=== PATIENT | male | born 1975 | race Caucasian/White ===

== ENCOUNTER 2016-04-05 18:48 | Emergency (ER) | payer OTHER ==
[2016-04-05 19:29] VITALS: BP 145/95
--- NOTE | 2016-04-05 20:14 | UC ---
Knee Pain HPI - HPI Summary HPI Summary: 40 year old male presents with right knee pain after an acute injury. Patient was skiing today, twisted his leg and felt and heard "two pops". Patient continued to ski, on his last run down the hill went to turn and his skis got stuck, patient fell, has been unable to extend the leg or bear weight on the right side. Patient reports 10/10 throbbing pain in the knee, with very limited ROM. Denies numbness or tingling in the right foot. - History of Current Complaint Chief Complaint: UCLowerExtremity Stated Complaint: KNEE INJURY Time Seen by Provider: 04/05/16 20:03 Hx Obtained From: Patient Onset/Duration: Sudden Onset Severity Initially: Severe Severity Currently: Severe Pain Intensity: 10 Pain Scale Used: 0-10 Numeric Character: Sharp, Dull, Aching, Throbbing, Stiffness Aggravating Factor(s): Movement, Weight Bearing, Stairs Alleviating Factor(s): Rest, Cold Associated Signs And Symptoms: Positive: Swelling, Weakness Able to Bear Weight: Yes Related History: Similar Episode/Dx as - right Menicus tear - Risk Factors Septic Arthritis Risk Factor: Negative Gout Risk Factor: Negative - Allergies/Home Medications Allergies/Adverse Reactions: Allergies Allergy/AdvReac Type Severity Reaction Status Date / Time No Known Allergies Allergy Verified 04/05/16 19:29 Home Medications: Home Medications Losartan TAB* [Cozaar TAB*] 25 mg PO DAILY 04/05/16 [History Confirmed 04/05/16] OXcarbazepine TAB(*) [Trileptal TAB(*)] 300 mg PO 04/05/16 [History] Sertraline* [Zoloft*] 50 mg PO DAILY 04/05/16 [History Confirmed 04/05/16] PMH/Surg Hx/FS Hx/Imm Hx Previously Healthy: Yes Cardiovascular History Of: Reports: Hypertension Psychological History Of: Reports: Depression, Bipolar Disorder - Surgical History Surgical History: Yes Surgery Procedure, Year, and Place: GASTRIC BYPAS 2009. [facility] - Social History Occupation: Employed Full-time Lives: With Family Alcohol Use: Daily Substance Use Type: None Smoking Status (MU): Never Smoked Tobacco Have You Smoked in the Last Year: No Review of Systems Constitutional: Negative Skin: Negative Eyes: Negative ENT: Negative Respiratory: Negative Cardiovascular: Negative Gastrointestinal: Negative Genitourinary: Negative Motor: Negative Neurovascular: Negative Musculoskeletal: Negative Neurological: Negative Psychological: Negative All Other Systems Reviewed And Are Negative: Yes Physical Exam Triage Information Reviewed: Yes Appearance: Well-Appearing Vital Signs: Initial Vital Signs Temp 99.9 F 04/05/16 19:23 Pulse 93 04/05/16 19:23 Resp 16 04/05/16 19:23 BP 145/95 04/05/16 19:23 Pulse Ox 100 04/05/16 19:23 Vital Signs Reviewed: Yes Eye Exam: Normal ENT Exam: Normal Dental Exam: Normal Neck exam: Normal Neck: Positive: Supple, Nontender, No Lymphadenopathy Respiratory Exam: Normal Respiratory: Positive: Chest non-tender, Lungs clear, Normal breath sounds Cardiovascular Exam: Normal Cardiovascular: Positive: RRR, No Murmur, Pulses Normal Abdominal Exam: Normal Abdomen Description: Positive: Nontender Bowel Sounds: Positive: Present Musculoskeletal Exam: Normal Neurological Exam: Normal Neurological: Positive: Alert Psychological Exam: Normal, Other - Observed extreme mood swings while Skin Exam: Normal Knee Pain Course/Dx - Course Course Of Treatment: Pt refused X-ray of the knee. Would prefer to follow up with his orthopedic surgeon, whom he consulted before coming in. While pt desired intraarticular steroids, he understands that we cannot do that in urgent care. Discussed comforting measures for acute knee pain, patient and provider discussed and agreed upon treatment options, verbalized his understanding. Pt stated he would like crutches ordered and agreed to some pain medication, but once the RN entered the room with medictions and discharge papers, he refused to sign the papers or use crutches. The patient jumped on one leg (wearing his KEVIN wrap and knee immobilizer) to the door. After attempting to exit the building the patient return saying that he would instead like hydrocodone tablets for pain. Patient was discharged to his home safely via wheelchair, patient assisted into the car safely. - Differential Dx/Diagnosis Provider Diagnoses: Acute knee injury Discharge - Discharge Plan Condition: Stable Disposition: HOME Prescriptions: HYDROcodone/ACETAMIN 5-325 MG* [[place] 5-325 TAB*] 1 tab PO Q6H PRN #6 tab MDD 4 PRN Reason: Pain Patient Education Materials: Knee Sprain (ED) Referrals: Non Staff,Doctor [Primary Care Provider] - As Soon As Possible (Follow up with your orthopedist within the work week. Return for evaluation with any new or worsening symptoms. Seek immediate medical attention in you experience numbness /tingling, decreased sensation in the right foot. ) Additional Instructions: Follow up with orthopedist within the work week.
[2016-04-05] MEDS ORDERED: Acetaminoph/Cod 120/12 mg LIQ* 5 ML UDC PO ONE ×2 (20:34→20:41)
[2016-04-05] MEDS ORDERED: HYDROcodone/ACETAMIN 5-325 MG* 1 TAB PO ONE (21:04)
== END 2016-04-05 21:25 | disposition home or self-care (01) ==
LOC: UCCORT 18:48
DX: S89.91XA Unspecified injury of right lower leg, initial encounter (principal); W19.XXXA Unspecified fall, initial encounter; Y93.23 Activity, snow (alpine) (downhill) skiing, snowboarding, sledding, tobogganing and snow tubing; Y92.89 Other specified places as the place of occurrence of the external cause; I10 Essential (primary) hypertension
CPT/HCPCS: 99203; A9270-GY; G0463